=== PATIENT | female | born 1945 | race Caucasian/White ===

== ENCOUNTER 2020-09-07 23:37 | Observation (INO) | payer MEDICARE, BC ==
[~2020-09-07] VITALS: Ht 152.4 cm; Wt 24.7 kg
[2020-09-08] MEDS ORDERED: TETanus/Pertussis (Acell)/Diphther VAC/PF (Tdap-Adult) 0.5ml syringe IMVAC ONE (00:55)
[2020-09-08] MEDS ORDERED: LIDOcaine 1% W/epiNEPHrine 1:200,000 10ml vial IJ ONE (00:55)
[2020-09-08 01:05] LABS: BASOPHILS # (AUTO) 0.1 X10'3 (0-0.2); BASOPHILS % (AUTO) 1.7 % (0-1); EOSINOPHILS # (AUTO) 0.2 X10'3 (0-0.9); EOSINOPHILS % (AUTO) 2.3 % (0-6); HEMATOCRIT 41.2 % (35.0-45.0); LYMPHOCYTES % (AUTO) 14.1 % (21-51); MEAN CORPUSCULAR HEMOGLOBIN 30.4 PG (27.0-31.0); MEAN CORPUSCULAR HGB CONC 33.9 g/dL (33.0-36.5); MEAN CORPUSCULAR VOLUME 89.5 FL (78-98); MEAN PLATELET VOLUME 7.5 FL (7.4-10.4); MONOCYTES # (AUTO) 0.6 X10'3 (0-0.9); MONOCYTES % (AUTO) 8.5 % (2-12); NEUTROPHILS # (AUTO) 5.2 X10'3 (1.8-7.7); NEUTROPHILS % (AUTO) 73.4 % (42-75); PLATELET COUNT 239 X10'3 (140-440); WHITE BLOOD COUNT 7.1 X10'3 (4.5-11.0)
[2020-09-08 01:14] LABS: PARTIAL THROMBOPLASTIN TIME 23 SECONDS (22-32)
[2020-09-08 01:17] LABS: ALANINE AMINOTRANSFERASE 56 U/L (12-78); ALBUMIN 3.6 G/DL (3.4-5.0); ALKALINE PHOSPHATASE 93 IU/L (46-116); ANION GAP 8 (8-16); ASPARTATE AMINO TRANSFERASE 75 U/L (10-37); BILIRUBIN,TOTAL 0.3 MG/DL (0.1-1.0); BLOOD UREA NITROGEN 18 MG/DL (7-18); BUN/CREATININE RATIO 21.4 (6.6-38.0); CALCIUM 9.9 MG/DL (8.5-10.1); CHLORIDE 106 MMOL/L (99-107); CREATININE 0.84 MG/DL (0.40-0.90); GLUCOSE 102 MG/DL (70-104); POTASSIUM 3.3 MMOL/L (3.5-5.1); SODIUM 144 MMOL/L (135-145); TOTAL CARBON DIOXIDE 30.2 MMOL/L (24-32); TOTAL PROTEIN 7.1 G/DL (6.4-8.2); eGFR 66 ML/MIN
[2020-09-08] MEDS ORDERED: mag hydrox/Alum hydrox/simeth 30ml oral suspension PO PRN (01:25)
[2020-09-08] MEDS ORDERED: magnesium 2GM in 50ml NS 50 ML IV PRN (01:25)
[2020-09-08] MEDS ORDERED: ondansetron/PF 4mg/2ml inj IV PRN (01:25)
[2020-09-08] MEDS ORDERED: acetaminophen 325mg tablet PO PRN (01:25)
[2020-09-08] MEDS ORDERED: magnesium Cl slow-release 64mg tablet PO PRN (01:25)
[2020-09-08] MEDS ORDERED: potassium Cl 20 mEq SR tablet PO PRN (01:25)
[2020-09-08] MEDS ORDERED: HYDROcodone/acetaminophen 5mg/325mg tablet PO PRN (01:25)
[2020-09-08] MEDS ORDERED: potassium Cl 40MEQ/1/2NS 520ml 520 ML IV PRN ×2 (01:25)
[2020-09-08] MEDS ORDERED: magnesium hydroxide 30ml (MOM) UD suspension PO PRN (01:25)
[2020-09-08] MEDS ORDERED: magnesium 4gm in 100ml NS 100 ML IV PRN (01:25)
[2020-09-08] MEDS ORDERED: LOSA100T57 PO (02:17)
[2020-09-08] MEDS ORDERED: OMEP-50 PO (02:17)
[2020-09-08] MEDS ORDERED: HYDR12.55 PO (02:17)
[2020-09-08] MEDS ORDERED: BACL10TA2 PO (02:17)
[2020-09-08] MEDS ORDERED: BIMA2.5D RIGHTEYE (02:17)
[2020-09-08] MEDS ORDERED: AMLO2.5T5 PO (02:17)
[2020-09-08] MEDS: K and/or MAG REPLACEMENT MC SCH ×2 (08:00→20:00)
[2020-09-08] MEDS: aspirin 325mg tablet PO SCH (08:16)
[2020-09-08] MEDS: HYDROchlorothiazide 12.5mg capsule PO SCH (08:16)
[2020-09-08] MEDS: amLODIPine 2.5mg tablet PO SCH (08:16)
[2020-09-08] MEDS: losartan 50mg tablet PO SCH (08:16)
[2020-09-08] MEDS: potassium Cl 20 mEq SR tablet PO PRN ×3 (08:24→21:51)
--- NOTE | 2020-09-08 12:18 | NUR ---
Received report from DULCE MARIA Rosas. Awaiting patient arrival to [facility].
--- NOTE | 2020-09-08 12:28 | NUR ---
Patient arrived to [facility] 3018[facility]. Ambulated from wheelchair to hospital bed. Telemetry monitoring initiated. Patient oriented to room and to call light. Vital signs: T 97.6, HR 77, O2 97% on room air, BP 144/74. Patient offers no complaints. All immediate needs met at this time.
[2020-09-08 15:00] VITALS: BP 139/61
[2020-09-08 18:00] VITALS: BP 144/77
--- NOTE | 2020-09-08 18:25 | NUR ---
Problems reprioritized. Patient report given, questions answered & plan of care reviewed with Amee العراقي. Patient stable at transfer of care.
[2020-09-08] MEDS ORDERED: regadenoson 0.4mg/5ml syringe IV PRN (21:50)
[2020-09-08] MEDS ORDERED: nitroGLYCERIN 0.4mg SUBLingual tab SL PRN (21:50)
[2020-09-08] MEDS ORDERED: metoprolol tartrate 1mg/ml inj IV PRN (21:50)
[2020-09-08] MEDS ORDERED: aminophylline 250mg/10ml inj. IV PRN (21:50)
[2020-09-08 22:00] VITALS: BP 134/76
[2020-09-09] VITALS (11 sets, daily range): BP systolic 113–144; BP diastolic 48–76
--- NOTE | 2020-09-09 07:01 | NUR ---
Patient in room [facility] 3018[facility]. I have received report from DULCE MARIA MORRISON and had the opportunity to ask questions and assume patient care.
[2020-09-09 07:56] LABS: HEMATOCRIT 40.6 % (35.0-45.0); MEAN PLATELET VOLUME 8.2 FL (7.4-10.4)
[2020-09-09 07:59] LABS: BASOPHILS % (AUTO) 0.7 % (0-1); EOSINOPHILS # (AUTO) 0.3 X10'3 (0-0.9); EOSINOPHILS % (AUTO) 5.5 % (0-6); HEMOGLOBIN 13.6 g/dl (12.0-16.0); LYMPHOCYTES # (AUTO) 1.7 X10'3 (1.1-4.8); LYMPHOCYTES % (AUTO) 34.7 % (21-51); MEAN CORPUSCULAR HEMOGLOBIN 30.4 PG (27.0-31.0); MEAN CORPUSCULAR HGB CONC 33.6 g/dL (33.0-36.5); MEAN CORPUSCULAR VOLUME 90.3 FL (78-98); MONOCYTES # (AUTO) 0.5 X10'3 (0-0.9); MONOCYTES % (AUTO) 10.9 % (2-12); NEUTROPHILS # (AUTO) 2.4 X10'3 (1.8-7.7); NEUTROPHILS % (AUTO) 48.2 % (42-75); PLATELET COUNT 239 X10'3 (140-440); RED BLOOD COUNT 4.49 X10'6 (4.20-5.60); RED CELL DISTRIBUTION WIDTH 13.3 % (11.5-14.5)
[2020-09-09] MEDS: K and/or MAG REPLACEMENT MC SCH (08:00)
[2020-09-09 08:38] LABS: ALANINE AMINOTRANSFERASE 38 U/L (12-78); ALBUMIN/GLOBULIN RATIO 0.9 (1.1-1.5); ALKALINE PHOSPHATASE 84 IU/L (46-116); ANION GAP 7 (8-16); ASPARTATE AMINO TRANSFERASE 27 U/L (10-37); BILIRUBIN,TOTAL 0.5 MG/DL (0.1-1.0); BLOOD UREA NITROGEN 20 MG/DL (7-18); BUN/CREATININE RATIO 26.3 (6.6-38.0); CALCIUM 9.7 MG/DL (8.5-10.1); CHLORIDE 107 MMOL/L (99-107); CREATININE 0.76 MG/DL (0.40-0.90); GLUCOSE 87 MG/DL (70-104); MAGNESIUM 2.7 MG/DL (1.5-2.4); SODIUM 143 MMOL/L (135-145); TOTAL CARBON DIOXIDE 28.9 MMOL/L (24-32); TOTAL PROTEIN 6.2 G/DL (6.4-8.2); eGFR 74 ML/MIN
[2020-09-09] MEDS ORDERED: BACL10TA2 PO (10:05)
[2020-09-09] MEDS: aspirin 325mg tablet PO SCH (12:18)
[2020-09-09] MEDS: amLODIPine 2.5mg tablet PO SCH (12:18)
[2020-09-09] MEDS: HYDROchlorothiazide 12.5mg capsule PO SCH (12:19)
[2020-09-09] MEDS: losartan 50mg tablet PO SCH (12:19)
--- NOTE | 2020-09-09 14:02 | NUR ---
PATIENT STABLE AND APPROPRIATE, TELE TAKEN OFF, IV TAKEN OUT, EDUCATION GIVEN, NEW MEDS SENT TO PREFERRED PHARMACY, ALL BELONGINGS SENT WITH PATIENT, PATIENT TAKEN TO LOBBY IN WHEELCHAIR TO AN AWAITING CAR WHERE WILL TAKE PATIENT HOME
== END 2020-09-09 15:14 | disposition home or self-care (01) ==
LOC: ER 23:38 → ED HOLD 09-08 01:24 → EDBEDREQSVC 09-08 11:09 → PCU 3S 09-08 12:29
PROVIDERS: ADMIT Family Medicine; ATTEND Internal Medicine
DX: R07.89 Other chest pain (principal); S01.01XA Laceration without foreign body of scalp, initial encounter; R55 Syncope and collapse; I10 Essential (primary) hypertension; E87.6 Hypokalemia; Z23 Encounter for immunization; W01.198A Fall on same level from slipping, tripping and stumbling with subsequent striking against other object, initial encounter; Y93.89 Activity, other specified; Y92.89 Other specified places as the place of occurrence of the external cause
CPT/HCPCS: 36415; 70450; 71045; 72125; 78452; 80053; 83735; 83880; 84484; 85025; 85610; 85730; 87081; 90471; 93005; 93017; 93306; 99285; A9500; G0378; J2785; 90715